=== PATIENT | male | born 1965 | race Caucasian/White ===

== ENCOUNTER 2016-10-31 09:21 | Emergency (ER) | payer MEDICAID, OTHER ==
[2016-10-31] MEDS ORDERED: Ketorolac INJ* 60 MG/2 ML VIAL IM ONE (10:12)
--- NOTE | 2016-10-31 10:14 | ED ---
GI/ HPI - HPI Summary HPI Summary: A 51 y/o male presents to the ED with SOB since last night. The patient has a trach collar SOB since last night. The patient is not on a ventilator Associated diaphoresis Wheezing Fever Mild Chills Mild cough Palpiations Hx of afib Pedal Edema Rhinorrhea Denies Productive cough Pain in the legs The patient was on a blood thinner in the past. No Hx of CHF Hx of pneumonia Smoker PE Moderate respiratory distress Retractions Diaphoretic Trach tube inplace Rhionrrhea Oral musca dry Irregular and fast Decreased breat sounds, rhonchi, wheezing, interacostal retractions Right greater than left LE swelling Cap 3 secs Skin turgor decreased Kacetic - History of Current Complaint Chief Complaint: EDGeneral Time Seen by Provider: 10/31/16 09:38 Stated Complaint: GROIN PAIN Hx Obtained From: Patient - 3-4 days increasing L testicular pain. no known injury Onset/Duration: Started Days Ago Timing: Constant Severity: Mild Current Severity: Moderate Pain Intensity: 7 Location of Pain: None - L testicle Pain Characteristics: Burning, Pressure Associated Signs and Symptoms: Negative: Nausea, Vomiting, Fever - skin is red and swollen on scrotum, Flank Pain, Chills Additional Signs & Symptoms: Negative: Penile Swelling, Penile Discharge, Lesions, STD Aggravating Factor(s): Movement Alleviating Factor(s): Rest, Position - tried ibuprofen yesterday with little relief - Risk Factors GI Bleed Risk Factor(s): Negative - Additional Pertinent History Primary Care Physician: [id number] Have you ever had this problem before: No - Allergy/Home Medications Allergies/Adverse Reactions: Allergies Allergy/AdvReac Type Severity Reaction Status Date / Time Penicillins [PCN] Allergy Unknown Unknown Verified 04/14/13 23:07 Reaction Details PMH/Surg Hx/FS Hx/Imm Hx Previously Healthy: Yes Endocrine/Hematology History: Reports: Hx Diabetes Cardiovascular History: Reports: Hx Hypertension Denies: Hx Congestive Heart Failure Respiratory History: Reports: Other Respiratory Problems/Disorders - HX OF PLEURISY Denies: Hx Asthma, Hx Chronic Obstructive Pulmonary Disease (COPD) GI History: Denies: Other GI Disorders - DIVERTICULITIS History: Denies: Hx Renal Disease Neurological History: Reports: Hx Peripheral Neuropathy Psychiatric History: Reports: Hx Anxiety, Hx Depression, Hx Community Mental Health Tx, Hx Bipolar Disorder, Hx Suicide Attempt, Hx of Violent Episodes Against Others, Hx Substance Abuse, Other Psychiatric Issues/Disorders Denies: Hx Eating Disorder Infectious Disease History: Unable to Obtain/Confirm Infectious Disease History: Denies: Traveled Outside the [place] in Last 30 Days - Family History Known Family History: Positive: None - Social History Occupation: Disabled - neuropathy Lives: With Family Alcohol Use: Daily Hx Substance Use: Yes Substance Use Type: Reports: Cocaine, Marijuana, Other - opiates Smoking Status (MU): Light Every Day Tobacco Smoker Type: Cigarettes Cessation Counseling: Patient Advised to Stop Review of Systems Constitutional: Negative Negative: Fever, Chills Cardiovascular: Negative Negative: Chest Pain Respiratory: Negative Negative: Shortness Of Breath, Cough Gastrointestinal: Negative Negative: Abdominal Pain, Vomiting, Diarrhea Negative: dysuria, discharge, frequency, flank pain, hematuria Negative: Rash Neurological: Negative Psychological: Normal All Other Systems Reviewed And Are Negative: Yes Physical Exam Triage Information Reviewed: Yes Vital Signs On Initial Exam: Initial Vitals Temp Pulse Resp BP Pulse Ox 97.9 F 85 16 131/87 97 10/31/16 09:39 10/31/16 09:39 10/31/16 09:39 10/31/16 09:39 10/31/16 09:39 Vital Signs Reviewed: Yes Appearance: Positive: Well-Appearing, No Pain Distress, Well-Nourished Skin: Positive: Warm, Skin Color Reflects Adequate Perfusion, Dry Respiratory/Lung Sounds: Positive: Clear to Auscultation Cardiovascular: Positive: Normal, RRR, Pulses are Symmetrical in both Upper and Lower Extremities Abdomen Description: Positive: Nontender, No Organomegaly, Soft Male Genital Exam: Positive: scrotum tenderness (L), other - unable to appreciate L tesrticle d/t swelling, pain. entire L scrotum erythemic, appears to be spreading to medial R scrotum and L dorsal penis. Negative: inguinal tenderness, scrotum tenderness (R), testicular tenderness (R), urethral discharge Neurological: Positive: Normal, Sensory/Motor Intact, Alert, Oriented to Person Place, Time Psychiatric: Positive: Other - pt denies narcotic abuse until confronted with [facility] record Diagnostics - Vital Signs Vital Signs Temp Pulse Resp BP Pulse Ox 10/31/16 09:39 97.9 F 85 16 131/87 97 - Laboratory Result Diagrams: 10/31/16 10:25 10/31/16 10:25 Lab Statement: Any lab studies that have been ordered have been reviewed, and results considered in the medical decision making process. Re-Evaluation - Re-Evaluation First Eval Change: Unchanged - denies worsening GIGU Course/Dx - Course Course Of Treatment: iST[facility]: # [id number] Assessment/Plan: discussed with Dr. Justice prior to d/c - Diagnoses Differential Diagnoses - Male: Epididymitis, Neoplasm, Testicular Torsion, Other - cellulitis Provider Diagnoses: Epididymitis Discharge - Discharge Plan Condition: Stable Disposition: HOME Prescriptions: Ciprofloxacin TAB* [Cipro Tab*] 500 mg PO BID #20 tab Referrals: Bernice Cunningham, ROUTE AIDE [Primary Care Provider] - 2 Days Additional Instructions: Rest. Take cipro (antibiotic) as directed Return here if symptoms worsen, otherwise have Dr. Rhodes see you in 2 days for a recheck Use over the counter ibuprofen and Tylenol as directed for pain
[2016-10-31 10:23] LABS: Urine Bacteria Absent (Absent); Urine Bilirubin Negative (Negative); Urine Glucose 3+(>=500 mg/dL) (Negative); Urine Nitrite Negative (Negative)
[2016-10-31 10:43] LABS: Hematocrit 42 % (42-52); Hemoglobin 13.8 g/dl (14.0-18.0); Mean Corpuscular HGB Conc 33 g/dl (31-36); Mean Corpuscular Hemoglobin 28 pg (27-31); Mean Corpuscular Volume 87 fL (80-94); Mean Platelet Volume 10 um3 (7.4-10.4); Red Blood Count 4.85 10^6/ul (4.0-5.4); Red Cell Distribution Width 13 % (10.5-15); White Blood Count 13.3 10^3/ul (3.5-10.8)
[2016-10-31 10:57] LABS: Albumin 2.9 g/dL (3.2-5.2); Calcium 8.4 mg/dL (8.6-10.3); EGFR African American 195.4 (>60); EGFR Non-African American 151.9 (>60); Globulin 3.6 g/dL (2-4); Total Bilirubin 0.8 mg/dL (0.2-1.0); Total Protein 6.5 g/dL (6.4-8.9)
--- NOTE | 2016-10-31 11:11 | RAD ---
HISTORY: Swelling and pain, left testicle pain COMPARISONS: None TECHNIQUE: Multiple transverse and longitudinal ultrasound images were obtained of the scrotum, using grayscale, color Doppler, and spectral Doppler imaging. FINDINGS: RIGHT: RIGHT TESTICLE: The right testicle measures 4.5 x 2.6 x 3 cm. The right testicle is homogeneous in echotexture, without testicular parenchymal mass. Normal arterial and venous waveforms are identified within the right testicle on spectral Doppler imaging. RIGHT EPIDIDYMIS: The right epididymis measures 1.1 cm at the head. RIGHT SCROTUM: There is no hydrocele or varicocele. LEFT: LEFT TESTICLE: The left testicle measures 4.1 x 2.6 x 3.3 cm. The left testicle somewhat hypervascular. There is no testicular parenchymal mass. Normal arterial and venous waveforms are identified within the left testicle on spectral Doppler imaging. LEFT EPIDIDYMIS: The left epididymis is diffusely enlarged and heterogeneous and echotexture, with increased vascularity measuring up to 2.3 cm. LEFT SCROTUM: There is a complex hydrocele. There is a hypoechoic nonvascular lesion in the scrotum measuring 2.8 x 1.8 x 1.2 cm. This represents a more loculated complex fluid collection. OTHER: None IMPRESSION: 1. NO TESTICULAR PARENCHYMAL MASS. 2. NO SONOGRAPHIC FEATURES OF TORSION. PLEASE NOTE THAT PARTIAL OR INTERMITTENT TORSION MAY BE SONOGRAPHICALLY NORMAL. 3. HETEROGENEOUS AND HYPERVASCULAR EPIDIDYMIS AND TESTICLE CONSISTENT WITH EPIDIDYMITIS/ORCHITIS. 4. THERE IS A COMPLEX HYDROCELE. THE DIFFERENTIAL INCLUDES PYOCELE. THIS ALSO INCLUDES A 2.8 CM MORE LOCULATED HYPOECHOIC LESION, POSSIBLY A MORE COMPLEX FLUID COLLECTION, WITHIN THE LEFT HEMISCROTUM
[2016-10-31 12:09] VITALS: BP 132/86
== END 2016-10-31 12:00 | disposition home or self-care (01) ==
LOC: ED 09:21
DX: N45.1 Epididymitis (principal); E11.9 Type 2 diabetes mellitus without complications; I10 Essential (primary) hypertension; F17.210 Nicotine dependence, cigarettes, uncomplicated; F31.9 Bipolar disorder, unspecified
CPT/HCPCS: 36415; 76870; 80053; 81003; 81015; 85025; 87086; 99282; J1885

== ENCOUNTER 2016-12-02 23:06 | Emergency (ER) | payer OTHER ==
--- NOTE | 2016-12-03 00:37 | ED ---
Complaint/Male - History of Current Complaint Chief Complaint: EDUrogenitalProblems Time Seen by Provider: 12/02/16 23:49 Hx Obtained From: Patient, Family/[employer] - Onset/Duration: Gradual Onset Timing: Constant Severity Initially: Mild Severity Currently: Mild Location: Testicle Character: Constant Pressure Associated Signs And Symptoms: Negative - Presents for 2 days of recurrent, atraumatic, constant L testicular swelling and pressure. No allev factors, STD concern, systemic symptoms, or trauma. No allev factors attempted. Had a similar event 2 weeks ago and partially allev by antibiotics but did not FU with PCP or Urology. - Allergies/Home Medications Allergies/Adverse Reactions: Allergies Allergy/AdvReac Type Severity Reaction Status Date / Time Penicillins [PCN] Allergy Unknown Unknown Verified 04/14/13 23:07 Reaction Details PMH/Surg Hx/FS Hx/Imm Hx Previously Healthy: Yes Endocrine/Hematology History: Reports: Hx Diabetes Cardiovascular History: Reports: Hx Hypertension Denies: Hx Congestive Heart Failure Respiratory History: Reports: Other Respiratory Problems/Disorders - HX OF PLEURISY Denies: Hx Asthma, Hx Chronic Obstructive Pulmonary Disease (COPD) GI History: Denies: Other GI Disorders - DIVERTICULITIS History: Denies: Hx Renal Disease Neurological History: Reports: Hx Peripheral Neuropathy Psychiatric History: Reports: Hx Anxiety, Hx Depression, Hx Community Mental Health Tx, Hx Bipolar Disorder, Hx Suicide Attempt, Hx of Violent Episodes Against Others, Hx Substance Abuse, Other Psychiatric Issues/Disorders Denies: Hx Eating Disorder Infectious Disease History: No Infectious Disease History: Denies: Traveled Outside the [place] in Last 30 Days - Family History Known Family History: Positive: None - Social History Alcohol Use: Daily Hx Substance Use: Yes Substance Use Type: Reports: Cocaine, Marijuana, Other - opiates Smoking Status (MU): Light Every Day Tobacco Smoker Type: Cigarettes Review Of Systems Constitutional: Positive: Negative. Negative: Fever, Chills Gastrointestinal: Positive: Negative. Negative: Abdominal Pain, Vomiting Genitourinary: Negative: Dysuria, Hematuria, Frequency All Other Systems Reviewed And Are Negative: Yes Physical Exam Triage Information Reviewed: Yes Vital Signs On Initial Exam: Initial Vitals Temp Pulse Resp BP Pulse Ox 96.4 F 88 16 144/84 100 12/02/16 23:17 12/02/16 23:17 12/02/16 23:17 12/02/16 23:17 12/02/16 23:17 Vital Signs Reviewed: Yes Appearance: Positive: Well-Appearing, No Pain Distress, Well-Nourished Skin: Positive: Warm, Skin Color Reflects Adequate Perfusion, Dry Respiratory/Lung Sounds: Positive: Clear to Auscultation, Breath Sounds Present Cardiovascular: Positive: Normal, RRR, Pulses are Symmetrical in both Upper and Lower Extremities Abdomen Description: Positive: Nontender, No Organomegaly, Soft Bowel Sounds: Positive: Present Male Genital Exam: Positive: no hernia, scrotum tenderness (L), testicular tenderness (L). Negative: epididymal tenderness, hernia mass, inguinal tenderness, lesions, scrotum tenderness (R), testicular tenderness (R), urethral discharge Musculoskeletal: Positive: Normal, Strength/ROM Intact Neurological: Positive: Normal, Sensory/Motor Intact, Alert, Oriented to Person Place, Time, CN Intact II-III Diagnostics - Vital Signs Vital Signs Temp Pulse Resp BP Pulse Ox 12/02/16 23:17 96.4 F 88 16 144/84 100 - Laboratory Lab Statement: Any lab studies that have been ordered have been reviewed, and results considered in the medical decision making process. Complaint Male Course/Dx - Differential Dx/Diagnosis Differential Diagnosis/HQI/PQRI: Epididymitis, Testicular Torsion, Trauma, Other - Eval with ultrasound for the enlarged and tense L testicle with odd mass on ultrasound. Check for STD and UTI associated today and refer to urology. Provider Diagnoses: epididymitis
[2016-12-03 00:55] LABS: Urine Bilirubin Negative (Negative); Urine Glucose 3+(>=500 mg/dL) (Negative); Urine Nitrite Negative (Negative)
[2016-12-03 02:51] VITALS: BP 129/84
--- NOTE | 2016-12-03 07:50 | RAD ---
INDICATION: Left testicular swelling COMPARISON: Similar examination dated October 31, 2016 TECHNIQUE: Duplex interrogation of the scrotum was performed. FINDINGS: The testicles are normal in size and echogenicity. There is no evidence for testicular mass. The right testis measures 4.3 x 2.1 x 3.1 cm and the left 4.1 x 2.1 x 3.0 cm. There is symmetric flow on Doppler interrogation. Arterial and venous waveforms are identified bilaterally. The right epididymis measures 1.1 x 1.1 cm the right epididymis measures 1.6 x 2.4 cm. There is hypervascular Doppler signal seen overlying the left epididymis. There is a heterogeneous left-sided hydrocele with echogenic debris within the fluid collection IMPRESSION: Sonographic findings are most consistent with left-sided epididymitis with a complex left-sided hydrocele. Adjacent to the left testis there is a complex fluid collection measuring 8.6 x 6.5 x 6.5 cm which in this setting could represent an abscess.
== END 2016-12-03 02:50 | disposition home or self-care (01) ==
LOC: ED 23:06
DX: N45.1 Epididymitis (principal); I10 Essential (primary) hypertension; E11.9 Type 2 diabetes mellitus without complications; F17.210 Nicotine dependence, cigarettes, uncomplicated; G62.9 Polyneuropathy, unspecified; F41.9 Anxiety disorder, unspecified; F32.9 Major depressive disorder, single episode, unspecified; N43.3 Hydrocele, unspecified
CPT/HCPCS: 76870; 81003; 87491; 87591; 99282